=== PATIENT | female | born 1975 | race Caucasian/White ===

== ENCOUNTER 2018-07-14 19:29 | Emergency (ER) | payer OTHER, SELFPAY ==
[2018-07-14 19:31] VITALS: BP 157/81; PULSE 75; RESP 17; TEMP 36.7; O2SAT 97; BMI 32.5
[2018-07-14] MEDS: 0.9% Normal Saline 1,000 ML 1000 ML IV (20:07)
--- NOTE | 2018-07-14 20:11 | RAD_ITS ---
STUDY: X-RAY - ACUTE ABDOMINAL SERIES REASON FOR EXAM: Female, 43 years old. Mid abdominal pain, no bowel movement. TECHNIQUE: Single view of the chest. Supine, view(s) of the abdomen were obtained. COMPARISON: None. FINDINGS: There is a normal cardiac silhouette. Hilar and mediastinal shadows are normal. There is no pleural effusion or acute bone or inflammatory change. There is no free air beneath the diaphragm. There is a nonobstructive bowel gas pattern. Stool burden is low. Cholecystectomy clips are noted in the right upper quadrant. There is no evidence of organomegaly. Phleboliths are noted in the pelvis. Soft tissues and bony structures are unremarkable. RAD/Acute Abdomen Inc Chest IMPRESSION: Normal x-ray examination of the chest, abdomen, and pelvis. Electronically Signed: Johana Irving MD at 20:45 EDT Tel , Service support ,
[2018-07-14 20:16] LABS: Mucous, Urine 0 SEEN /hpf (<or=2+); Red Blood Cells-Urine 0 SEEN /hpf (0-5); White Blood Cells 0 SEEN /hpf (0-5)
[2018-07-14 20:22] LABS: Color, Urine Yellow (Yellow); Glucose, Dipstick Normal (Normal); Ketone-Dipstick Negative (Negative); Leukocyte Esterase-Dipstick Negative /ul (Negative); Nitrite-Dipstick Negative (Negative); Occult Blood-Urine 250 /ul (Negative); Protein-Dipstick Negative (Negative); Specific Gravity, Urine 1.015 (1.002-1.030); Urine Bilirubin Dipstick Negative (Negative); Urine Clarity Clear (Clear); Urine Urobilinogen Normal (Normal)
[2018-07-14 20:26] LABS: Internal QC Validated? YES +Cl - CLEAR BKGD; Pregnancy, Urine Negative Negative
[2018-07-14 20:35] LABS: ALB/GLOB Ratio 0.9 RATIO (0.9-2.4); AST(SGOT) 13 U/L (15-37); Alanine Aminotransfer ALT/SGPT 23 U/L (13-56); Albumin, Serum 3.7 g/dL (3.2-5.0); Alkaline Phosphatase 72 U/L (45-117); Anion Gap 6 (5-15); BUN 14 mg/dL (7-18); BUN/Creat Ratio 14.7 RATIO (10-20); Calcium,Total 8.9 mg/dL (8.5-10.1); Chloride 105 mmol/L (98-107); Creatinine, Serum 0.95 mg/dL (0.55-1.02); EST Glomerular Filtration Rate 68 mL/min (>60); Est Glom Filt Rate - Afr Amer 82 mL/min (>60); Estimated Creatinine Clearance 65.26 ml/min; Globulin 4.2 g/dL (2.2-4.2); Glucose 99 mg/dL (74-106); Lipase 161 U/L (73-393); Potassium 4.3 mmol/L (3.5-5.1); Protein, Total 7.9 g/dL (6.4-8.2); Sodium Level 137 mmol/L (136-145)
[2018-07-14 20:39] LABS: Squamous Epithelial Cells - UA 5-10 SEEN /hpf (5-10)
[2018-07-14 20:40] LABS: Bacteria 1+ /hpf (None Seen)
[2018-07-14 20:45] LABS: Absolute Lymphocyte Count 2.91 X10^3/ul (0.83-4.51); Absolute Neutrophil Count 7.1 X10^3/uL (2.0-7.7); Basophil# 0.02 X10^3/uL; Basophil% 0.2 % (0-1); Eosinophil# 0.25 X10^3/uL; Eosinophils% 2.3 % (0-5); Hematocrit 41.1 % (37-47); Hemoglobin 13.6 g/dl (12.0-15.0); Lymphocyte # 2.91 X10^3/ul (4.0); Lymphocyte % 26.4 % (19-41); Mean Corp Hgb Conc 33.1 g/gl (32-36); Mean Corpuscular Hgb 29.6 pg (27.0-32.0); Mean Corpuscular Volume 89.5 fL (81-99); Mean Platelet Vol. 9.5 fl (6.2-12.0); Monocyte# 0.77 X10^3/uL; Neutrophil # 7.05 X10^3/uL (2.7-7.7); Platelet Count 350 K/mm3 (150-450); RBC Distribution Width CV 12.8 % (11.6-14.6); RBC Distribution Width SD 41.2 fl (35.1-43.9); Red Blood Count 4.59 M/mm3 (4.2-5.4)
[2018-07-14 20:47] LABS: POSITIVE COUNT NO; POSITIVE DIFFERENTIAL NO; POSITIVE MORPHOLOGY NO
--- NOTE | 2018-07-14 21:30 | ED.VISSUMM ---
- ER Visit Summary Date of Service: 07/14/18 Chief Complaint: Abdominal pain History of Present Illness: The patient is a 43 F who presents with abdominal pain that has been constant for the past week. Patient states the pain is sharp. Patient states the pain is over the epigastric area. Patient states the pain does radiate into her back. Patient admits to some nausea but denies any vomiting. Patient states she has been constipated. Patient states her last bowel movement was over a week ago. Patient denies any urinary complaints. Patient states her last menstrual period was 07/10/2018. Physical Examination: Vital signs are stable. Patient is afebrile. Patient is in no acute distress. Oral mucosa is pink and moist. Neck is supple. Trachea is midline. There is no JVD noted. Heart was regular rate and rhythm. Lungs are clear and equal bilateral. There is good respiratory effort noted. Abdomen is soft. There is tenderness over the epigastric area. There is no rebound or guarding noted. There is no distention noted. Cranial nerves II through XII are intact. There are no focal motor or sensory deficits noted. Test Results: Acute abdominal x-rays were obtained. There is no evidence of any bowel obstruction. CBC, comprehensive metabolic profile, lipase, urinalysis, and urine hCG were obtained were all normal. Emergency Department Course and Treatment: Patient was given a dose of ibuprofen here. Patient was instructed to take [id number] stool softeners or laxatives as needed for constipation. Patient was instructed to follow-up with her primary care physician in 5-7 days for further evaluation. Patient understood and was agreeable with the plan. All questions were answered. Disposition: Discharge home Impression: Abdominal pain This note was generated with [employer] dictation software. It may contain incorrect words, spelling, and punctuation that were not noted in review of the chart prior to signing ED Disposition - Plan for ED Patient: Disposition: Home or Assisted Living Chief Complaint: Abd Pain Diagnosis: Abdominal pain Instructions: ED Abdominal Pain Unkn Cause, ED Constipation Referrals: Navjot Ross DO [Primary Care Provider] -
[2018-07-14] MEDS: Ibuprofen 400 MG Tablet 800 MG PO (21:45)
[2018-07-14 21:53] VITALS: BP 115/61; PULSE 61; RESP 18; O2SAT 100
== END 2018-07-14 21:54 | disposition home or self-care (01) ==
PROVIDERS: Emergency Provider Emergency Medicine; Family Provider Preventive Medicine Occupational Medicine; PCP Preventive Medicine Occupational Medicine
DX: R10.13 Epigastric pain (principal)
CPT/HCPCS: 74022; 80053; 81001; 81025; 83690; 85025; 96360; 96361; 99284; J7030

== ENCOUNTER 2023-12-27 16:25 | Emergency (ER) | payer BC, SELFPAY ==
[2023-12-27] VITALS (8 sets, daily range): BP systolic 119–150; BP diastolic 60–79; PULSE 88–104; RESP 14–20; TEMP 35.8–37.9; O2SAT 96–98; BMI 28.8
[2023-12-27 16:51] LABS: Absolute Lymphocyte Count 1.55 X10^3/uL (0.83-4.51); Absolute Neutrophil Count 16.5 X10^3/uL (2.0-7.7); Basophil# 0.06 X10^3/uL; Basophil% 0.3 % (0-1); Eosinophil# 0.01 X10^3/uL; Eosinophils% 0.1 % (0-5); Hematocrit 41.3 % (37-47); Hemoglobin 13.3 g/dL (12.0-15.0); Lymphocyte # 1.55 X10^3/ul (0.83-4.51); Lymphocyte % 8.1 % (19-41); Mean Corp Hgb Conc 32.2 g/dL (32-36); Mean Corpuscular Hgb 29.4 pg (27.0-32.0); Mean Corpuscular Volume 91.2 fL (81-99); Mean Platelet Vol. 9.9 fl (6.2-12.0); Monocyte# 0.83 X10^3/uL; Monocyte% 4.3 % (0-10); NRBC Flagged by Analyzer 0 % (0-5); Neutrophil # 16.54 X10^3/uL (2.7-7.7); Neutrophil % 86.6 % (47-70); Platelet Count 330 K/mm3 (150-450); RBC Distribution Width CV 12.8 % (11.6-14.6); RBC Distribution Width SD 42.3 fl (35.1-43.9); Red Blood Count 4.53 M/mm3 (4.2-5.4); White Blood Count 19.1 K/mm3 (4.4-11.0)
[2023-12-27 17:13] LABS: Anion Gap 4 (5-15); BUN 15 mg/dL (7-18); BUN/Creat Ratio 16.4 RATIO (10-20); Calcium,Total 9.4 mg/dL (8.5-10.1); Chloride 105 mmol/L (98-107); Creatinine, Serum 0.91 mg/dL (0.55-1.02); EST Glomerular Filtration Rate 69 mL/min (>60); Est Glom Filt Rate - Afr Amer 84 mL/min (>60); Estimated Creatinine Clearance 74.73 ml/min; Glucose 108 mg/dL (74-106); Potassium 3.9 mmol/L (3.5-5.1); Sodium Level 135 mmol/L (136-145)
[2023-12-27] MEDS: Acetaminophen 325 MG Tablet 650 MG PO (17:46)
[2023-12-27] MEDS: 0.9% Normal Saline (1000mL) 1,000 ML 1000 ML IV (17:46)
--- NOTE | 2023-12-27 18:33 | EDS_ITS ---
HPI History of Present Illness Chief Complaint: General Illness Detail of Chief Complaint: Generalized illness started a couple days ago. She had nausea and vomiting Informant: patient Onset/Context/Timing Onset: Days Context: Gradual Onset and Sudden Onset Timing: Continuous and Waxes and wanes Quality: Myalgias, headache, fever, nausea and vomiting Location: Generalized Current Severity: Moderate Maximum Severity: Moderate Worsened by: Nothing specific Relieved by: Nothing Associated Symptoms Associated Symptoms: Previously documented Narrative Narrative: Patient is a 48-year-old woman who presents with viral-like symptoms that started several days ago and is gotten worse over the past 12 hours. She endorses fever and chills. She complains of right-sided headache. She denies double vision, blurred vision loss of vision. Denies photophobia. Denies neck pain or neck stiffness. She denies rhinorrhea or congestion. She denies sore throat. She has slight cough. Denies shortness of breath. She does report nausea and vomiting. She denies diarrhea. She denies dysuria, frequency, urgency or hematuria. Denies skin rash. Prior similar symptoms: No Recent Illness/Hospitalization: No PFSH PFSH Medical History Knee pain Home Medications [id number] fumarate 18 mg-FA 600 mcg-vit K 40 mcg capsule (Multi For Her) 1 ea PO DAILY 07/14/18 [History Last Taken Unknown] Allergy/AdvReac Type Severity Reaction Status Date / Time No Known Allergies Allergy Verified 12/27/23 16:30 Social History Smoking Status: Never smoker ROS ROS ED Constitutional Constitutional ED: Reports chills and fever(s); Denies subjective, sweats or weight loss Eyes Eyes: Denies blurry vision, change in vision or diplopia ENT ENT ED: Reports other Details: Patient endorses dry mouth and thirst. ; Denies ear pain, rhinorrhea or sore throat Cardiovascular Cardiovascular: Denies chest pain, orthopnea, palpitations or paroxysmal nocturnal dyspnea Respiratory/Chest Respiratory/Chest: Reports cough; Denies dyspnea, dyspnea on exertion, orthopnea, paroxysmal nocturnal dyspnea or sputum Gastrointestinal Gastrointestinal: Reports abdominal pain, nausea and vomiting; Denies constipation, diarrhea or melena Genitourinary Genitourinary ED: Reports other Details: Patient endorses decreased urine output. ; Denies dysuria, hematuria or urinary frequency Musculoskeletal Musculoskeletal: Reports back pain and myalgias; Denies arthralgias or neck pain Neurologic Neurologic: Reports headache(s); Denies paresthesias or weakness Psychiatric Psychiatric: Denies anxiety Endocrine Endocrinology: Denies cold intolerance or heat intolerance Hematologic/Lymphatic Hematologic/Lymphatic: Reports systems reviewed and no addt'l complaints, except as documented EXAM Physical Exam Const Vital Signs: 12/27/23 16:26 12/27/23 16:26 12/27/23 16:30 Temperature 96.5 F L 96.5 F L 96.5 F L Temperature Source Temporal Temporal Temporal Pulse Rate 104 H 104 H 104 H Respiratory Rate 19 H 16 16 Respiratory Pattern Blood Pressure 150/79 H 150/79 H 150/79 H Blood Pressure Mean 102 102 102 Pulse Ox 98 98 98 Oxygen Delivery Method Room Air Room Air Room Air 12/27/23 16:43 12/27/23 17:18 12/27/23 17:36 Temperature 100 F H 100.2 F H Temperature Source Oral Oral Pulse Rate 104 H 103 H Respiratory Rate 16 18 Respiratory Pattern Normal Blood Pressure 150/79 H 135/69 H Blood Pressure Mean 102 91 Pulse Ox 98 96 Oxygen Delivery Method Room Air Room Air 12/27/23 18:00 12/27/23 19:00 12/27/23 20:00 Temperature 100.3 F H 99.2 F H 99.0 F Temperature Source Oral Oral Oral Pulse Rate 94 92 88 Respiratory Rate 18 20 H 17 Respiratory Pattern Blood Pressure 121/60 H 121/63 H 119/71 Blood Pressure Mean 80 82 87 Pulse Ox 97 97 96 Oxygen Delivery Method Room Air Room Air Room Air 12/27/23 20:00 Temperature Temperature Source Pulse Rate 94 Respiratory Rate 14 Respiratory Pattern Blood Pressure 119/71 Blood Pressure Mean 87 Pulse Ox 97 Oxygen Delivery Method Room Air Positive well nourished and well developed Constitutional Narrative: Patient appears ill. She does not appear toxic. General Appearance ED: well developed and NAD; Negative for pallor HEENT Reports dry mucous membranes HEENT Narrative: Head is atraumatic normocephalic. Ears normal. External auditory canal normal. TMs normal. Nares patent. Posterior pharynx is normal. Uvula is midline. Mouth ED: Yes dry mucous membranes Mouth: dry mucous membranes Eyes PERRL and EOMs intact bilaterally Eyes Narrative: Sclera is injected. Conjunctive is injected as well. General Eye ED: Negative for pale conjunctiva or scleral icterus Neck no lymphadenopathy, supple and no JVD Chest Wall inspection of chest normal and palpation of chest normal Resp normal respiratory effort and clear to auscultation bilaterally Cardio regular rhythm, S1 normal heart sound, S2 normal heart sound and no murmurs Rate: tachycardic GI normal to inspection, nondistended, normoactive bowel sounds, non-tender, non- distended and hepatosplenomegaly Auscultation: normoactive bowel sounds Palpation: soft Back/Spine Lumbar Spine / Lower Back: Negative for lumbar spinal tenderness Extremity normal to inspection General Extremety ED: Negative for edema or tenderness General Extremity: Negative for edema Neuro oriented x3, CN's II-XII intact bilaterally and no sensory deficits noted Sensorium / Orientation: alert Sensory Exam: sensory level loss detected Psych mental status grossly normal Skin no rashes or lesions noted, no wounds and skin turgor normal General Skin Exam: Negative for elasticity normal, jaundice or pallor MDM MDM MDM Narrative Medical decision making narrative: Clinically patient is dehydrated. Will give normal saline was ordered. Blood work was ordered per nurse protocol. CBC was obtained as well as BMP. Rapid antigen for COVID influenza RSV was ordered as well. Because she had questionable right CVA tenderness UA was ordered. This is pending. Lab Data Attestation: I reviewed the patient's lab results. Lab results narrative: White count is elevated 19,000 with slight shift. There is no bandemia. H&H is normal. Renal function is normal. Electrolytes are normal. Labs: Laboratory Results - last 24 hr 12/27/23 12/27/23 16:45 19:10 WBC 19.1 H RBC 4.53 Hgb 13.3 Hct 41.3 MCV 91.2 MCH 29.4 MCHC 32.2 RDW Std Deviation 42.3 RDW Coeff of Becki 12.8 Plt Count 330 MPV 9.9 Immature Gran % (Auto) 0.600 Neut % (Auto) 86.6 H Lymph % (Auto) 8.1 L [place] % (Auto) 4.3 Eos % (Auto) 0.1 Baso % (Auto) 0.3 Absolute Neuts (auto) 16.5 H Absolute Lymphs (auto) 1.55 Nucleated RBC % 0 Sodium 135 L Potassium 3.9 Chloride 105 Carbon Dioxide 26.0 Anion Gap 4 L BUN 15 Creatinine 0.91 Estim Creat Clear Calc 74.73 Est GFR (MDRD) Af Amer 84 Est GFR (MDRD) Non-Af 69 BUN/Creatinine Ratio 16.4 Glucose 108 H Calcium 9.4 Urine Color Yellow Urine Clarity Clear Urine pH 6.0 Ur Specific [place] 1.010 Urine Protein Negative Urine Glucose (UA) Normal Urine Ketones 15 H Urine Occult Blood 25 H Urine Nitrite Negative Urine Bilirubin Negative Urine Urobilinogen Normal Ur Leukocyte Esterase Negative Urine RBC 0-5 SEEN Urine WBC 0 SEEN Ur Squamous Epith Cells 0-5 SEEN Amorphous Sediment 1+ URATE Urine Bacteria 0 SEEN Urine Mucus 0 SEEN Treatment and Re-Evaluation :: Patient received Tylenol for her fever. Will reassess. Patient was reassessed at 1934. She still has a headache. She was informed of her results. She was told her urinalysis has not been completed. IV Toradol was ordered for her headache and aches. Comments:: Patient was reassessed at 182. She reports no significant improvement. Patient was discharged to home. She was told she has a viral infection Discharge Plan Triage Chief Complaint: General Illness ED Provider: Ervin Jacobson Dx/Rx/DC Orders Clinical Impression: Systemic viral illness, Fever in adult, Viral cephalgia, Sinus tachycardia Instructions: ED Fever Control (Adult), ED Viral Syndrome (Adult) Prescriptions: No Action [id number] [Multi For Her] 1 EACH capsule 1 ea PO DAILY Primary Care Provider: Nidhi Hernandez NP Referrals: Nidhi Hernandez NP, [facility] [Primary Care Provider] - 1 Week if not improving Disposition Disposition: Home, Self Care
[2023-12-27 19:18] LABS: Bacteria 0 SEEN /hpf (None Seen); Mucous, Urine 0 SEEN /hpf (<or=2+); White Blood Cells 0 SEEN /hpf (0-5)
[2023-12-27 19:26] LABS: Color, Urine Yellow (Yellow); Glucose, Dipstick Normal (Normal); Ketone-Dipstick 15 mg/dl (Negative); Leukocyte Esterase-Dipstick Negative /ul (Negative); Nitrite-Dipstick Negative (Negative); Occult Blood-Urine 25 /ul (Negative); Protein-Dipstick Negative (Negative); Urine Bilirubin Dipstick Negative (Negative); Urine Clarity Clear (Clear); Urine Urobilinogen Normal (Normal)
[2023-12-27 19:47] LABS: Amorphous Sediment 1+ URATE; Red Blood Cells-Urine 0-5 SEEN /hpf (0-5); Squamous Epithelial Cells - UA 0-5 SEEN /hpf (5-10)
[2023-12-27] MEDS: Ketorolac 15 MG/ML Vial IV (20:12)
== END 2023-12-27 21:07 | disposition home or self-care (01) ==
PROVIDERS: Emergency Provider Emergency Medicine; PCP Nurse Practitioner Family; Visit Provider Emergency Medicine
DX: B34.9 Viral infection, unspecified (principal); E86.0 Dehydration; R50.9 Fever, unspecified; R00.0 Tachycardia, unspecified; M79.10 Myalgia, unspecified site; R51.9 Headache, unspecified; R11.2 Nausea with vomiting, unspecified; R05.9 Cough, unspecified; Z11.52 Encounter for screening for COVID-19
CPT/HCPCS: 80048; 81001; 85025; 87631; 96361; 96374; 99285; J7030; A4216